=== PATIENT | female | born 1980 | race Caucasian/White ===

== ENCOUNTER 2016-11-07 19:18 | Day surgery (SDC) | payer BC ==
[~2016-11-07] VITALS: Ht 182.9 cm; Wt 90.9 kg
[~2016-11-07 19:18] MED LIST: CALCIUM1 CAP PO; MOTRIN 800800 MG/TAB PO; MULTI VITAMINS1 TAB PO; NEW ENERGY1 CAP PO; NORCO 325 MG-51 TAB PO; PRENATAL VITAMI1 TAB PO; RED RASPBERRY PO; VITAMIN COMPLEX1 TA1 PO; VITAMIN D1000 IU PO
[2016-11-07] MEDS ORDERED: PRENATAL MVI (19:26)
[2016-11-07 19:53] LABS: BASO % 0.4 % (0.0-2.0); EOS # 0.1 (0.0-0.7); GRAN # 6.4 (1.4-6.5); GRAN % 69.6 % (42.2-75.2); HEMATOCRIT 37.5 % (37.0-47.0); LYMPH # 2.1 (1.2-3.4); LYMPH % 22.9 % (20.0-51.0); MEAN CELL VOLUME 89 fl (80.0-100.0); MEAN CORPUSCULAR HEMOGLOBIN 31 pg (27.0-31.0); MEAN CORPUSCULAR HGB CONC 35 g/dl (33.0-37.0); MEAN PLATELET VOLUME 9.9 fl (7.4-10.4); MONO # 0.6 (0.1-0.6); MONO % 5.9 % (1.7-9.3); PLATELET COUNT 199 K/mm3 (130-400); RED BLOOD COUNT 4.23 M/mm3 (4.10-5.30); REDCELL DISTRIBUTION WIDTH-CV 12.4 % (11.5-14.5); WHITE BLOOD COUNT 9.3 K/mm3 (4.8-10.8)
[2016-11-07 20:18] LABS: CALCIUM 8.9 mg/dL (8.4-10.2); CREATININE, serum 0.6 mg/dL (0.52-1.25); POTASSIUM 3.5 mmol/L (3.4-5.0)
[2016-11-08] VITALS (8 sets, daily range): BP systolic 86–104; BP diastolic 44–63; PULSE 61–74; TEMP 98.1
[2016-11-08] MEDS ORDERED: IBU800 M1 PO (00:33)
[2016-11-08] MEDS ORDERED: PERCOCET 325 MG1 TA2 PO (00:33)
== END 2016-11-08 06:45 | disposition home or self-care (01) ==
LOC: COL.ER 19:18 → SDCO 22:50 → OB 22:50 → SDCO 11-08 06:45
PROVIDERS: Emergency Medicine
DX: O03.4 Incomplete spontaneous abortion without complication (principal); O02.1 Missed abortion; O24.429 Gestational diabetes mellitus in childbirth, unspecified control; O09.521 Supervision of elderly multigravida, first trimester; N93.9 Abnormal uterine and vaginal bleeding, unspecified; F32.9 Major depressive disorder, single episode, unspecified; Z3A.10 10 weeks gestation of pregnancy; Z82.3 Family history of stroke; Z82.49 Family history of ischemic heart disease and other diseases of the circulatory system; Z84.1 Family history of disorders of kidney and ureter
CPT/HCPCS: OP; J2704; J3010; J7030; J7120

== ENCOUNTER 2018-12-28 06:25 | Inpatient (IN) | payer BC ==
[2018-12-28] VITALS (31 sets, daily range): BP systolic 100–158; BP diastolic 56–84; PULSE 70–100; TEMP 97.8–98.6
[~2018-12-28] VITALS: Ht 177.8 cm; Wt 110.0 kg
[~2018-12-28 06:25] MED LIST changes: +IBU800 M1 PO; +PERCOCET 325 MG1 TA2 PO; +PRENATAL MVI
[2018-12-28] MEDS ORDERED: ASPIRIN 81M81 MG/TA2 PO (08:30)
[2018-12-28 08:31] LABS: BASO % 0.3 % (0.0-2.0); EOS # 0.1 (0.0-0.7); EOS % 1.6 % (0-4.0); GRAN # 5.5 (1.4-6.5); GRAN % 77.9 % (42.2-75.2); HEMOGLOBIN 11.4 g/dl (12.5-16.0); LYMPH # 0.9 (1.2-3.4); LYMPH % 12.4 % (20.0-51.0); MEAN CELL VOLUME 88 fl (80.0-100.0); MEAN CORPUSCULAR HEMOGLOBIN 29 pg (27.0-31.0); MEAN CORPUSCULAR HGB CONC 33 g/dl (33.0-37.0); MEAN PLATELET VOLUME 10.5 fl (7.4-10.4); MONO # 0.5 (0.1-0.6); MONO % 7.1 % (1.7-9.3); PLATELET COUNT 118 K/mm3 (130-400); RED BLOOD COUNT 3.92 M/mm3 (4.10-5.30); REDCELL DISTRIBUTION WIDTH-CV 13.6 % (11.5-14.5)
[2018-12-28 08:32] LABS: HEMATOCRIT 34.3 % (37.0-47.0)
--- NOTE | 2018-12-28 09:07 | NUR ---
9582 PT ARRIVED TO LR#3 AMBULATORY WITH FOR INDUCTION AND OF LABOR. CHANGED INTO GOWN, INTO BED AND MONITORS APPLIED. ASSESSMENT COMPLETED AND CONSENTS SIGNED
--- NOTE | 2018-12-28 12:50 | NUR ---
2017 OF MALE INFANT OVER AN INTACT GRACIELA, 2022 SPONTANOUS DELIVERY OF PLACENTA, FF WITH MASSAGE AND PITOCIN DRIP INFUSIONS WIDE OPEN
--- NOTE | 2018-12-28 13:07 | NUR ---
1056 Cecelia SÁNCHEZ [employer] AT BEDSIDE FOR EPIDURAL PLACEMENT, PT POSITIONED SITTING UP ON EDGE OF BED FOR PLACEMENT. 1103 CATH, 1104 TEST DOSE. 1108 PT POSITIONED IN A WEDGE RT POSITION.
--- NOTE | 2018-12-28 13:36 | NUR ---
1214 PT POSITIONED IN FOOTPLATES, DR JONES AT BEDSIDE, PREPPED, 1218 PT PUSHING OVER INTACT GRACIELA, 2022 SPONTANOUS DELIVERY OF PLACENTA, FF WITH MASSAGE, PITOCIN DRIP INFUSES WIDE OPEN
--- NOTE | 2018-12-28 14:42 | NUR ---
1430 PT AMBULATED TO BR WITH ASSIST OF 1. VOIDS LARGE AMT, GRACIELA CARE DONE, PAD AND PANTIES ON, CLEAN GOWN. AMBULATES BACK TO BED BUT A LITTLE LIGHTHEADED. TO RM 207 VIA W/C. ADVISED PT SHE NEEDS TO USE THE CALL LIGHT TO GET UP
--- NOTE | 2018-12-28 17:00 | NUR ---
Ambulates to the bathroom and back. Voids large amount of clear yellow urine with some bloody show.
[2018-12-29 00:35] VITALS: BP 105/60; PULSE 66; TEMP 97.9
[2018-12-29 07:35] VITALS: BP 99/63; PULSE 69; TEMP 98.1
[2018-12-29] MEDS ORDERED: MOTRIN 800800 MG/TAB PO (08:33)
--- NOTE | 2018-12-29 12:15 | NUR ---
Initial visit; Parents thanked for offering congratulations for the of their son. thanked family for choosing [facility].
[2018-12-29 15:35] VITALS: BP 131/62; PULSE 70; TEMP 97.9
[2018-12-29 21:40] VITALS: BP 111/65; PULSE 76
[2018-12-30 08:39] VITALS: BP 112/68; PULSE 75; TEMP 98.4
--- NOTE | 2018-12-30 10:30 | NUR ---
discharge instructions given, pt verbalizes understanding. No further questions noted. Bands matched and hugs tag removed.
== END 2018-12-30 11:00 | disposition home or self-care (01) | DRG 807 ==
LOC: LDR 06:25 → OB 14:30 → LDR 17:42 → OB 12-30 11:00
PROVIDERS: ADMIT Obstetrics & Gynecology
PROC: 10E0XZZ Delivery of Products of Conception, External Approach (ICD-10-PCS; principal; 2018-12-28)
PROC: 3E033VJ Introduction of Other Hormone into Peripheral Vein, Percutaneous Approach (ICD-10-PCS; 2018-12-28)
PROC: 10907ZC Drainage of Amniotic Fluid, Therapeutic from Products of Conception, Via Natural or Artificial Opening (ICD-10-PCS; 2018-12-28)
DX: O99.824 Streptococcus B carrier state complicating childbirth (principal); Z37.0 Single live birth; O34.211 Maternal care for low transverse scar from previous cesarean delivery; Z3A.39 39 weeks gestation of pregnancy
CPT/HCPCS: J2540; J2590; J2795; J7120

== ENCOUNTER → 2019-04-16 | Outpatient (CLI) | payer BC ==
[~2019-04-16] MED LIST changes: +ASPIRIN 81M81 MG/TA2 PO
== END ==
LOC: COL.RAD 04-09 09:45
DX: K83.8 Other specified diseases of biliary tract (principal)